=== PATIENT | male | born 1940 | race Caucasian/White ===

== ENCOUNTER → 2018-06-25 | Day surgery (SDC) | payer BC ==
[~2018-06-25] VITALS: Ht 185.4 cm; Wt 90.7 kg
[~2018-06-25] MED LIST: AMLODIPINE BESY10 MG PO; ARICEPT5 MG PO; ASA81 MG; ASPIRIN81 MG PO; BUPROPION HCL100 MG PO; FENOFIBRATE145 MG PO; GABAPENTIN300 MG PO; HYDRALAZINE HCL25 MG PO; LABETALOL HCL200 MG PO; LIDOCAINE 1% W/EPINEPHRINE 20 ML VIAL ONE; LOSARTAN POTASS25 MG PO; NAPROXEN SODIU220 MG PO; NORMODYNE200 MG; ONE DAILY1 EAC1 PO; PLAVIX75 MG PO; TRILIPIX45 MG PO; VITAMIN E400 UNI1 PO; Z GARLIC; Z.0.CENTRUM SILVER1; Z.0.LOVASTATIN40 MG; Z.0.TRIBENZOR 20-51; [UNRECOGNIZED DRUG - OTHER]
--- NOTE | 2018-06-25 08:58 | Operative Report ---
DATE OF PROCEDURE: June 25, 2018 INDICATIONS: Palpitations and syncope. PROCEDURE PERFORMED: Insertable loop recorder. Left anterior chest was anesthetized using subcutaneous lidocaine. A TV Compass LINQ, serial number [id number] was inserted subcutaneously without any complications. Skin approximated using Dermabond. Patient discharged home same day. Job#: [id number] RI
== END | disposition home or self-care (01) ==
LOC: CATH LAB 06:49
PROVIDERS: ATTEND Internal Medicine Interventional Cardiology
DX: R55 Syncope and collapse (principal); R00.2 Palpitations
CPT/HCPCS: 33282; C1764

== ENCOUNTER 2018-08-31 13:09 | Observation (INO) | payer MEDICARE ==
[2018-08-30 11:35] LABS: BASOPHILS % 0.7 % (0.0-1.0); EOSINOPHILS # (AUTO) 0.2 (0.0-0.4); EOSINOPHILS % 2.9 % (0.0-6.0); HEMATOCRIT 40.2 % (38.2-49.6); HEMOGLOBIN 11.5 g/dL (14.0-18.0); LYMPHOCYTES # (AUTO) 0.9 (1.0-3.2); LYMPHOCYTES % 16.2 % (18.0-39.1); MEAN CORPUSCULAR HEMOGLOBIN 23.6 pg (28-32); MEAN CORPUSCULAR HGB CONC 28.6 g/dL (31-35); MEAN CORPUSCULAR VOLUME 82.5 fL (81-99); MONOCYTES # (AUTO) 0.3 (0.2-0.8); MONOCYTES % 5.9 % (4.4-11.3); NEUTROPHILS # (AUTO) 4.1 (2.1-6.9); NEUTROPHILS % 73.9 % (38.7-80.0); PLATELET COUNT 161 x10e3/uL (140-360); RED BLOOD COUNT 4.87 x10e6/uL (4.3-5.7); RED CELL DISTRIBUTION WIDTH 23.6 % (11.7-14.4)
[2018-08-30 11:45] LABS: INR 0.91; PROTHROMBIN TIME 13.1 seconds (11.9-14.5)
[2018-08-30 11:52] LABS: ANION GAP 14.1 mmol/L (8-16); CALCIUM 9.9 mg/dL (8.4-10.2); CREATININE, SERUM 1.36 mg/dL (0.72-1.25); POTASSIUM 4.1 mmol/L (3.5-5.1)
[~2018-08-31] VITALS: Ht 185.4 cm; Wt 90.7 kg
[~2018-08-31 13:09] MED LIST changes: +IRON/FERROUS SULFATE PO; -LIDOCAINE 1% W/EPINEPHRINE 20 ML VIAL ONE; +OMEGA 3 FISH O1 EACH PO; +VITAMIN D22000 UNIT PO
--- OUTSIDE RECORDS SUMMARY | 2018-08-31 13:13 | XMS REPORT | Continuity of Care Document ---
Author Author [facility] Interface Address Unknown Phone Unavailable Problems Problem Status Onset Date Classification Date Reported Comments Source Cerebral infarction, unspecified 01/06/2018 04/09/2018 [facility] I63.9 - CEREBRAL INFARCTION, UNSPECIFI H Active 12/14/2017 [facility] Peripheral neuropathy Active Diagnosis 11/02/2014 [facility] Hypertension Active Diagnosis 11/02/2014 [facility] Hyperlipemia Active Diagnosis 11/02/2014 [facility] CAD Active Diagnosis 11/02/2014 [facility] Elevated PSA Active Diagnosis 11/02/2014 [facility] Thrombocytopenia Active Problem 01/05/2014 [facility] Vitamin d deficiency Active Diagnosis 11/02/2014 [facility] Routine general medical examination at health care facility Active Diagnosis 11/02/2014 [facility] Diplopia 04/09/2018 [facility] Other abnormal findings on diagnostic imaging of central nervous system 04/09/2018 [facility] DEBILITY Active [facility] DEBILITY Active [facility] Medications Medication Details Route Status Patient Instructions Ordering Provider Order Date Source Lovaza 2 capsules Orally Active 1 GM Orally Twice a day [facility] 10/31/2013 [facility] Gabapentin 1 capsule Orally Active 300 MG Orally Three times a day [facility] 10/31/[address] [facility] Vitamin D (Ergocalciferol) 1 capsule Orally Active 17953 UNIT Orally once per week [facility] 10/31/2013 [facility] NIFEdipine ER 1 tablet PO Active 60MG PO twice a day (bid) [facility] Clopidogrel Bisulfate 1 tablet Orally Active 75 Orally daily [facility] Labetalol HCl 1 tablet PO Active 200MG PO twice a day (bid) [facility] Crestor 1 tablet Orally Active 20 mg Orally Once a day [facility] Aspirin EC 1 tablet Orally Active 81 MG Orally Once a day [facility] Lovaza 2 po bid NA No Longer Active 1GM [facility] Allergies, Adverse Reactions, Alerts Substance Category Reaction Severity Reaction type Status Date Reported Comments Source N.K.D.A. Adverse Reaction Info Not Available Adverse Reaction Active 10/23/2014 [facility] Immunizations Immunization Date Given Site Status Last Updated Comments Source Results Order Name Results Value Reference Range Date Interpretation Comments Source Brain wo contrast MRI Brain wo contrast MRI PATIENT NAME: JOSE WALKER : 1940; Age: 77 years y/o Male MR: [id number] STUDY: Brain wo contrast MRI 12/31/2017 4:43 PM TECHNICAL BUSINESS SYSTEMS ANALYST ORDERING PHYSICIAN: Daily Turcios MD CLINICAL INDICATION: I63.9 Cerebral infarction, unspecified - I63.9 Cerebral infarction, unspecified; COMPARISON: None TECHNIQUE: Multiplanar noncontrast MRI of the brain is performed. FINDINGS: BRAIN PARENCHYMA: There is no hemorrhage, mass lesion, extra axial collection, cerebral edema, or mass effect. Diffusion sequences are normal. There is moderate to advanced far loss most evident in the temporal lobes. There are advanced signal abnormalities in the periventricular white matter. There is cross shaped central pontine signal abnormality. There are symmetric thalamic signal abnormalities.The cerebellar tonsils are above foramen magnum. The pituitary gland is age-appropriate. CEREBELLOPONTINE REGIONS AND SKULL BASE: The cerebellopontine angles appear unremarkable. No skull base abnormality is seen. VENTRICLES/SULCI/CISTERNS: The lateral ventricles are prominent without mass effect. The basal cisterns are patent. VISUALIZED VESSELS: Major intracranial flow voids are preserved. ORBITS, VISUALIZED PARANASAL SINUSES AND MASTOIDS: Paranasal sinuses are clear. The mastoid air cells are clear. No orbital pathology is seen. IMPRESSION: 1. No evidence of acute or recent ischemia 2. Moderate to advanced chronic small vessel ischemia 3. Cross shaped signal abnormality in the central janet may represent chronic microvascular ischemia or sequela of idiopathic no degenerative pathologies including multisystem atrophy 4. Prominent lateral ventricles may be passive related central white matter volume loss or represent NPH. There is no mass effect related to the ventricular system 12/31/2017 - - Read by: Giovani Garg MD Dictated Date/time: 12/31/17 18:10 Electronically Signed by: Giovani Garg MD 12/31/17 18:13 FINAL REPORT IRVING Benjamin Vital Signs Vital Sign Value Date Comments Source Weight 251 10/23/2014 [facility] Height 72 10/23/2014 [facility] Temperature Oral (F) 98.3 F 10/23/2014 [facility] Heart Rate 68 10/23/2014 [facility] Diastolic (mm Hg) 80 10/23/2014 [facility] Systolic (mm Hg) 178 10/23/2014 [facility] Weight 248 10/31/2013 [facility] Height 72 10/31/2013 [facility] Heart Rate 74 10/31/2013 [facility] Diastolic (mm Hg) 80 10/31/2013 [facility] Systolic (mm Hg) 130 10/31/2013 [facility] Encounters Location Location Details Encounter Type Encounter Number Reason For Visit Attending Provider ADM Date DC Date Status Source [facility] MED REFILL [id number] 10/31/2013 10/31/2013 [facility] MED REFILL [id number] 10/31/2013 10/31/2013 [facility] MED REFILL [id number] 10/31/2013 10/31/2013 [facility] annual physical [id number] 10/23/2014 10/23/2014 [facility] annual physical [id number] 10/23/2014 10/23/2014 [facility] Unknown [id number] 10/24/2014 10/24/[address] [facility] Unknown [id number] 10/24/2014 10/24/[address] [facility] [id number] Benito Castellanos 05/02/2015 06/01/2015 [facility] [id number] Benito Castellanos 06/06/2015 07/06/2015 [facility] [id number] Daily Turcios 12/31/2017 01/01/2018 [facility] Procedures Procedure Code Date Perfomer Comments Source
--- OUTSIDE RECORDS SUMMARY | 2018-08-31 13:13 | XMS REPORT | Summary of Care ---
Author Author [facility] Address Unknown Phone Unavailable Encounter [facility]) [id number] Date(s): 05/02/15 - 05/31/15 [facility] Discharge Disposition: Home Attending Physician: Benito Castellanos MD Vital Signs No data available for this section Problem List No data available for this section Allergies, Adverse Reactions, Alerts No data available for this section Medications No data available for this section Results No data available for this section Immunizations No data available for this section Procedures No data available for this section Social History No data available for this section Assessment and Plan No data available for this section
--- OUTSIDE RECORDS SUMMARY | 2018-08-31 13:13 | XMS REPORT ---
Author Author Luz Singh [facility] eClinicalWorks Address Unknown Phone Unavailable Care Team Providers Care Wet Finisher Name Role Phone MeetYury Luz Unavailable Encounters Encounter Location Date MED REFILL [facility] Oct 31, 2013 Problems Problem Type Condition ICD-9 Code Onset Dates Condition Status Assessment Peripheral neuropathy 356.9 Active Assessment Hypertension 401.9 Active Assessment Hyperlipemia 272.4 Active Problem Hypertension 401.9 Active Problem Hyperlipemia 272.4 Active Problem CAD (coronary artery disease) 414.00 Active Problem Elevated PSA 790.93 Active Problem Thrombocytopenia 287.5 Active Problem Peripheral neuropathy 356.9 Active Problem Vitamin d deficiency 268.9 Active Assessment Thrombocytopenia 287.5 Active Assessment Elevated PSA 790.93 Active Assessment Vitamin d deficiency 268.9 Active Assessment CAD (coronary artery disease) 414.00 Active Medications Medication Code System Code Instructions Start Date End Date Status Dosage NIFEdipine ER [facility] [address]-99 60MG PO twice a day (bid) Active 1 tablet Lovaza [facility] [address]-61 1 GM Orally Twice a day Oct 31, 2013 Oct 26, 2014 Active 2 capsules Clopidogrel Bisulfate [facility] [address]-80 75 Orally daily Active 1 tablet Labetalol HCl [facility] [address]-73 200MG PO twice a day (bid) Active 1 tablet Crestor [facility] [address]-12 20 mg Orally Once a day Active 1 tablet Aspirin EC [facility] [address]-31 81 MG Orally Once a day Active 1 tablet Lovaza [facility] [address]-56 1GM Inactive 2 po bid Gabapentin [facility] [address]-94 300 MG Orally Three times a day Oct 31, 2013 Active 1 capsule Vitamin D (Ergocalciferol) [facility] [address]-18 36257 UNIT Orally once per week Oct 31, 2013 February 28, 2014 Active 1 capsule Social History Social History Element Qualifiers Date Reported children . 2 Oct 31, 2013 Tobacco Use: . Are you a: former smoker quit 27 years, How many packs per day? 1-2, How many years have you smoked? 5-10 Oct 31, 2013 Marital Status: . Oct 31, 2013 Do you drink alcohol? . Status: No Oct 31, 2013 Occupation: . , Retired [employer] Oct 31, 2013 Family history Qualifier Description Comment Date Reported Maternal Grandmother Comment not available Oct 31, 2013 Paternal Grandmother Comment not available Oct 31, 2013 Father Comment not available Oct 31, 2013 Maternal Grandfather Comment not available Oct 31, 2013 Mother Comment not available Oct 31, 2013 Paternal Grandfather Comment not available Oct 31, 2013 Vital Signs Date/Time: Oct 31, 2013 Weight 248 lbs Height 72 inches Cardiac Monitoring Heart Rate 74 Beats per Minute Blood Pressure Diastolic 80 mm Hg Blood Pressure Systolic 130 mm Hg Summary Purpose eClinicalWorks Submission
--- OUTSIDE RECORDS SUMMARY | 2018-08-31 13:13 | XMS REPORT ---
Author Author Wendy Odonnell [facility] eClinicalWorks Address Unknown Phone Unavailable Care Team Providers Care Position Classification Manager Name Role Phone Wendy Odonnell Unavailable Encounters Encounter Location Date MED REFILL [facility] Oct 31, 2013 annual physical [facility] Oct 23, 2014 Unknown [facility] Oct 24, 2014 Social History Social History Element Qualifiers Date Reported children . 2 Oct 23, 2014 Tobacco Use: . Are you a: former smoker quit 27 years, How many packs per day? 1-2, How many years have you smoked? 5-10 Oct 23, 2014 Marital Status: . Oct 23, 2014 Do you drink alcohol? . Status: No Oct 23, 2014 Occupation: . , Retired [employer] Oct 23, 2014 Summary Purpose eClinicalWorks Submission
--- OUTSIDE RECORDS SUMMARY | 2018-08-31 13:13 | XMS REPORT | Summary of Care ---
Author Author [facility] Address Unknown Phone Unavailable Encounter HQ Encntr_alias([facility]) [id number] Date(s): 06/06/15 - 07/05/15 [facility] Discharge Disposition: Home Attending Physician: Benito Castellanos [...]
--- OUTSIDE RECORDS SUMMARY | 2018-08-31 13:13 | XMS REPORT ---
Author Author [facility] Address Unknown Phone Unavailable Care Team Providers Care Audiovisual Librarian Name Role Phone Unavailable Unavailable Payers Payer Name Policy Type Policy Number Effective Date Expiration Date Problems This patient has no known problems. Allergies, Adverse Reactions, Alerts Allergy Name Allergy Type Status Severity Reaction(s) Onset Date Inactive Date Treating Clinician Comments gabapentin DA Active U 2018-06-11 00:00:00 Medications This patient has no known medications.
--- OUTSIDE RECORDS SUMMARY | 2018-08-31 13:13 | XMS REPORT | Summary of Care ---
Author Author [facility] Organization [facility] Address Unknown Phone Unavailable Encounter HQ Encntr_alimarques([facility]) [id number] Date(s): 12/31/17 - 12/31/17 [facility] [address] [place] [id number] [phone] Encounter Diagnosis Cerebral infarction, unspecified (Final) - 01/05/18 Diplopia (Final) - Other abnormal findings on diagnostic imaging of central nervous system (Final) - Discharge Disposition: Home or Self Care Attending Physician: Daily Turcios MD Vital Signs No data available for [...]
--- OUTSIDE RECORDS SUMMARY | 2018-08-31 13:13 | XMS REPORT ---
Author Author Wendy Odonnell [facility] eClinicalWorks Address Unknown Phone Unavailable Care Team Providers Care Barratte Operator Name Role Phone Wendy Odonnell CP Unavailable Allergies, Adverse Reactions, Alerts Substance Reaction Event Type N.K.D.A. Info Not Available Non Drug Allergy Encounters Encounter Location Date MED REFILL [facility] Oct 31, 2013 annual physical [facility] Oct 23, 2014 Unknown [facility] Oct 24, 2014 Problems Problem Type Condition ICD-9 Code Onset Dates Condition Status Assessment Elevated PSA 790.93 Active Assessment Vitamin d deficiency 268.9 Active Assessment Routine general medical examination at health care facility V70.0 Active Assessment Hypertension 401.9 Active Assessment CAD (coronary artery disease) 414.00 Active Assessment Peripheral neuropathy 356.9 Active Assessment Hyperlipemia 272.4 Active Social History Social History Element Qualifiers Date Reported children . 2 Oct 23, 2014 Tobacco Use: . Are you a: former smoker quit 27 years, How many packs per day? 1-2, How many years have you smoked? 5-10 Oct 23, 2014 Marital Status: . Oct 23, 2014 Do you drink alcohol? . Status: No Oct 23, 2014 Occupation: . 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
[2018-08-31 13:27] VITALS: BP 121/75
[2018-08-31] MEDS ORDERED: LIDOCAINE HCL 2% LOCAL 20 ML VIAL ONE (15:51)
[2018-08-31] MEDS ORDERED: FENTANYL CITRATE/PF 100MCG/2 ML INJ ONE (15:51)
[2018-08-31] MEDS ORDERED: MIDAZOLAM HCL 2 MG/2 ML VIAL ONE ×2 (15:51→17:29)
[2018-08-31] MEDS ORDERED: BACITRACIN 50,000 UNIT VIAL ONE (15:51)
[2018-08-31] MEDS ORDERED: SODIUM CHLORIDE 0.9% 1000ML 1,000 ML ONE (15:52)
[2018-08-31] MEDS ORDERED: SODIUM CHLORIDE 0.9% 500ML 500 ML ONE (15:52)
[2018-08-31] MEDS ORDERED: VANCOMYCIN 1GM/NS 250 ML 250 ML ONE (15:52)
[2018-08-31 20:00] VITALS: BP 196/87
[2018-08-31] MEDS ORDERED: ACETAMINOPHEN/CODEINE 300MG - 30MG TAB PO PRN (20:00)
--- NOTE | 2018-08-31 20:05 | Diagnostic Imaging Report ---
A single frontal view of the chest. HISTORY: Pacer implant COMPARISON: None available. DISCUSSION: Portable technique, limits sensitivity of the exam. Soft tissue attenuation partially limits sensitivity of the exam. Overlying monitoring leads. Tubes/Lines: Implanted left-sided cardiac device. Lungs and pleura: Low lung volumes result in bibasilar vascular crowding, accentuation of the pulmonary interstitial markings, central pulmonary vasculature, and the cardiac silhouette. Allowing for these limitations, the findings are as follows: Diffuse interstitial prominence and mild bibasilar atelectasis. No evidence of a consolidative pneumonia or pulmonary alveolar edema. No definite pleural effusion or pneumothorax is identified. Heart and mediastinum: The cardiomediastinal silhouette appears unremarkable. Bones: No acute osseous lesion is identified, given this limited exam. IMPRESSION: 1. Status post placement of an implanted cardiac device. 2. No pneumothorax is identified. 3. Bibasilar atelectasis. Signed by: Dr. Shahzad Westfall D.O., M.M.M. on 08/31/2018 8:02 PM
[2018-08-31 20:37] VITALS: BP 196/87
[2018-08-31 20:46] VITALS: BP 196/87
[2018-08-31] MEDS ORDERED: MINOCYCLINE HCL50 MG PO ×2 (21:41→21:43)
--- NOTE | 2018-08-31 23:44 | Operative Report ---
DATE OF PROCEDURE: August 31, 2018 PREPROCEDURE DIAGNOSES: 1. Sick sinus syndrome, symptomatic bradycardia. 2. Loop recorder in place. POSTPROCEDURE DIAGNOSES: 1. Sick sinus syndrome, symptomatic bradycardia. 2. Loop recorder in place. ESTIMATED BLOOD LOSS: 5 mL. COMPLICATIONS: None. PROCEDURES PERFORMED: 1. Dual-chamber pacemaker placement. 2. Removal of a loop recorder. 3. Moderate sedation. Moderate conscious sedation was provided under my direct supervision by a sedation-trained nurse. Sedation approximate time 30 minutes, Versed and Fentanyl. There were no complications. See sedation form for details. DESCRIPTION OF PROCEDURE: After informed consent was obtained, patient was brought to the electrophysiology laboratory in a fasting, nonsedated state. Area over his chest was prepped and draped in the usual sterile fashion. Moderate sedation and prophylactic antibiotic were given, 1% lidocaine was used as a local anesthetic, and a 3-cm skin incision was made in the left subclavicular area. Electrocautery, sharp and blunt dissection were used to reach the muscular fascia and a pocket was created for eventual implantation of the device. Vascular access was obtained x2 in the left axillary vein using the modified Seldinger technique under fluoroscopic guidance. Two 6-Syriac sheaths were placed. The ventricular lead advanced to the RV apex, R-wave 12, pacing 0.4 at 0.5, impedance 850; the atrial lead to the right atrial appendage, P-wave 5, pacing 0.4 at 0.5, impedance 700. The sheaths were removed from the body. Leads were secured to fascia using #0 silk. Pocket was irrigated with antibiotic solution using the pulse pelletising extruder operator. Hemostasis was meticulous. Leads were connected to the device, and entire pacemaker system placed in the pocket. Incision was closed using Vicryl and Dermabond. Patient tolerated the procedure well. Procedure was deemed complete. SUMMARY OF HARDWARE IMPLANTED: 1. The new pacemaker is [employer], model #L311, [id number]. 2. The atrial lead is [employer], 7741, [id number]. 3. The ventricular lead is [employer], model 7732, 985669. We then prepped and draped the area of the loop recorder. A 1-cm skin incision was made and the loop recorder was removed using the hemostat. Hemostasis was obtained with manual pressure. The incision was closed using Vicryl and Dermabond. Patient tolerated the procedure well. Procedure was deemed complete. IMPRESSION: 1. Successful dual-chamber pacemaker placement via left axillary vein. 2. Successful removal of a loop recorder. PLAN: 1. Routine postoperative monitoring on telemetry bed. 2. Chest x-ray. 3. Follow up in 2 weeks. Job#: [id number]
== END 2018-08-31 22:00 | disposition home or self-care (01) ==
LOC: CATH LAB 13:09 → IMCU 18:48
PROVIDERS: ADMIT Internal Medicine; ATTEND Internal Medicine
DX: I48.1 Persistent atrial fibrillation (principal); D64.9 Anemia, unspecified; T45.515A Adverse effect of anticoagulants, initial encounter; I25.10 Atherosclerotic heart disease of native coronary artery without angina pectoris; I10 Essential (primary) hypertension; Z01.812 Encounter for preprocedural laboratory examination; Z79.01 Long term (current) use of anticoagulants; Z01.811 Encounter for preprocedural respiratory examination
CPT/HCPCS: 33208; 33284; 36415; 71045; 80048; 85025; 85610; C1785; C1898; G0378; J2001; J2250; J3370; J7030; J7040

== ENCOUNTER 2021-04-03 17:30 | Emergency (ER) | payer MEDICARE ==
[~2021-04-03] VITALS: Ht 185.4 cm; Wt 103.9 kg
[~2021-04-03 17:30] MED LIST changes: +ATENOLOL50 MG PO; +DOCUSATE SODIU100 MG PO; +ELIQUIS5 MG PO; +MINOCYCLINE HCL50 MG PO
[2021-04-03 19:48] LABS: BASOPHILS % 0.5 % (0.0-1.0); EOSINOPHILS # (AUTO) 0.2 (0.0-0.4); EOSINOPHILS % 2.1 % (0.0-6.0); HEMOGLOBIN 15.9 g/dL (14.0-18.0); LYMPHOCYTES # (AUTO) 0.9 (1.0-3.2); LYMPHOCYTES % 11.7 % (18.0-39.1); MEAN CORPUSCULAR HEMOGLOBIN 28.8 pg (28-32); MEAN CORPUSCULAR HGB CONC 32.4 g/dL (31-35); MEAN CORPUSCULAR VOLUME 88.6 fL (81-99); MONOCYTES # (AUTO) 0.5 (0.2-0.8); MONOCYTES % 6.7 % (4.4-11.3); NEUTROPHILS # (AUTO) 6.1 (2.1-6.9); NEUTROPHILS % 78.6 % (38.7-80.0); PLATELET COUNT 127 x10e3/uL (140-360); RED BLOOD COUNT 5.53 x10e6/uL (4.3-5.7); RED CELL DISTRIBUTION WIDTH 14.3 % (11.7-14.4)
[2021-04-03 20:03] LABS: ALBUMIN 4.3 g/dL (3.5-5.0); ALBUMIN/GLOBULIN RATIO 1.3 (0.8-2.0); ANION GAP 17.6 mmol/L (8-16); CALCIUM 9.6 mg/dL (8.4-10.2); CREATININE, SERUM 1.45 mg/dL (0.72-1.25); POTASSIUM 4.6 mmol/L (3.5-5.1)
[2021-04-03] MEDS ORDERED: LIDOCAINE JELLY 2% 10ML URO-JET TOP ONE (20:15)
[2021-04-03 20:50] LABS: CLARITY,URINE SL CLOUDY (CLEAR); COLOR,URINE AMBER (YELLOW); KETONES,URINE NEGATIVE (NEGATIVE); LEUKOCYTE ESTERASE ,URINE NEGATIVE (NEGATIVE); NITRITE,URINE NEGATIVE (NEGATIVE); PROTEIN,URINE DIPSTICK 1+ (NEGATIVE); URINE UROBILINOGEN 0.2 mg/dL (0.2 - 1)
[2021-04-03 21:03] LABS: BACTERIA,URINE RARE /HPF
[2021-04-03 22:10] VITALS: BP 159/85
== END 2021-04-03 22:13 | disposition home or self-care (01) ==
LOC: ER 18:19
DX: M54.5 Low back pain (principal); R33.9 Retention of urine, unspecified; R25.1 Tremor, unspecified; F03.90 Unspecified dementia, unspecified severity, without behavioral disturbance, psychotic disturbance, mood disturbance, and anxiety; I10 Essential (primary) hypertension; E78.5 Hyperlipidemia, unspecified; D64.9 Anemia, unspecified; I48.91 Unspecified atrial fibrillation; Z95.810 Presence of automatic (implantable) cardiac defibrillator
CPT/HCPCS: 36415; 72100; 80053; 81001; 85025; 99284